=== PATIENT | male | born 1965 | race African-American/Black ===

== ENCOUNTER 2017-11-11 12:57 | Emergency (ER) | payer OTHER ==
[2017-11-11] MEDS ORDERED: ASPIRIN 81 MG CHEWABLE TABLETS PO ONE (13:11)
[2017-11-11] MEDS ORDERED: HEPARIN NA (PORCINE) 5,000 UNITS/ML 1ML VIAL IVPUSH PRN ×2 (13:12→20:48)
--- NOTE | 2017-11-11 13:13 | PDOC ---
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 Patient reports beginning to experience intermittent chest pain and SOB last week but stated he did not get evaluated as he thought it was something that would go away over time. He reports experiencing intense chest pain this afternoon as well as sob, stating increased chest pain with exertion prompting him to come into the ED for further evaluation. Patient currently has been experiencing increased sweating and dizziness while in the ED. Denies nausea, vomiting. Denies contact with sick individuals, out of state travelling. Denies any other symptoms. Allergies: Penicillin Social history: Current smoker (4 cigarettes per day). No alcohol. No illicit drugs. Surgical history: None PMD: Dr. Whitt Other provider: Dr. Neo Buenrostro - Medical Decision Making 11/11/17 17:23 Documentation prepared by Get French, acting as medical safety director for Arianna Simpson MD, /DO. <Get French - Last Filed: 11/11/17 17:23> - Resident Resident Name: Paul Albarran - ED Attending Attestation I have performed the following: I have examined & evaluated the patient, The case was reviewed & discussed with the resident, I agree w/resident's findings & plan, Exceptions are as noted - Physicial Exam PE: GENERAL: Awake, alert, and fully oriented. Appears anxious HEAD: No signs of trauma EYES: PERRLA, EOMI, sclera anicteric, conjunctiva clear ENT: Auricles normal inspection, hearing grossly normal, nares patent, oropharynx clear without exudates. Moist mucosa NECK: Normal ROM, supple, no lymphadenopathy, JVD, or masses LUNGS: Breath sounds equal, clear to auscultation bilaterally. No wheezes, and no crackles HEART: Regular rate and rhythm, normal S1 and S2, no murmurs, rubs or gallops ABDOMEN: Soft, +epigastric tenderness, normoactive bowel sounds. No guarding, no rebound. No masses EXTREMITIES: Normal range of motion, no edema. No clubbing or cyanosis. No cords, erythema, or tenderness NEUROLOGICAL: Cranial nerves II through XII grossly intact. Normal speech, normal gait SKIN: Warm, Diaphoretic, normal turgor, no rashes or lesions noted. - Medical Decision Making 11/11/17 14:19 Case discussed with IR, did not recommend intervention, as patient has evidence of pulmonary hypertension and old PEs on R side, concern that the risks of intervention outweigh the benefits, especially given normal RV size. Bedside echo done in ED, no signs of RV strain. Case d/w Dr. Buenrostro, no additional recommendations at present. <Arianna Simpson - Last Filed: 11/11/17 18:30>
[2017-11-11] MEDS ORDERED: SODIUM CHLORIDE 1,000 ML IV STA (13:14)
[2017-11-11 13:29] LABS: BASO % 0.7 % (0-2.0); EOS % 0.7 % (0-4.5); HEMATOCRIT 38.7 % (35.4-49); HEMOGLOBIN 12.5 GM/dL (11.7-16.9); LYMPH % 29.4 % (8-40); MCH 26.4 pg (25.7-33.7); MCHC 32.2 g/dl (32.0-35.9); MEAN CELL VOLUME 82.1 fl (80-96); MEAN PLT VOLUME 8.4 fl (7.5-11.1); NEUT % 62.2 % (42.8-82.8); PLATELET COUNT 233 K/MM3 (134-434); RBC 4.71 M/mm3 (4.00-5.60); RDW 15.8 % (11.9-15.9); WHITE BLOOD COUNT 13.6 K/mm3 (4.0-10.0)
[2017-11-11 13:43] LABS: INR 1.19 (0.82-1.09); PROTHROMBIN TIME (PATIENT) 13.4 SEC (9.98-11.88)
[2017-11-11] MEDS ORDERED: HEPARIN INFUSION - 25,000 UNITS/500 ML INFUS.BAG IVPB ONE (13:43)
[2017-11-11] MEDS ORDERED: HEPARIN NA (PORCINE) 5,000 UNITS/ML 1ML VIAL ONE ×2 (13:43→21:40)
[2017-11-11] MEDS ORDERED: HEPARIN NA (PORCINE) 5,000 UNITS/ML 1ML VIAL IVPUSH ONE (13:44)
[2017-11-11] MEDS ORDERED: HEPARIN INFUSION - 25,000 UNITS/500 ML INFUS.BAG IVPB SCH (13:45)
[2017-11-11 14:26] VITALS: TEMP 97.8; BMI 32.5
[2017-11-11 15:38] LABS: ALBUMIN 3.1 g/dl (3.4-5.0); ANION GAP 10 (8-16); BILIRUBIN,TOTAL 0.8 mg/dL (0.2-1.0); BLOOD UREA NITROGEN 14 mg/dL (7-18); CALCIUM 7.9 mg/dL (8.5-10.1); CHLORIDE 104 mmol/L (98-107); CO2 23 mmol/L (21-32); CREATININE 1.1 mg/dL (0.7-1.3); GLUCOSE,RANDOM 99 mg/dL (74-106); POTASSIUM 4.3 mmol/L (3.5-5.1); SGOT/AST 25 U/L (15-37); SGPT/ALT 40 U/L (12-78); SODIUM 137 mmol/L (136-145); TOT PROT 7.4 g/dl (6.4-8.2)
[2017-11-11 15:41] LABS: ALK PHOS 103 U/L (45-117)
--- NOTE | 2017-11-11 16:56 | HP ---
CHIEF COMPLAINT: PCP: HISTORY OF PRESENT ILLNESS: ER course was notable for: (1) (2) (3) Recent Travel: PAST MEDICAL HISTORY: PAST SURGICAL HISTORY: Social History: Smoking: Alcohol: Drugs: Family History: Allergies Penicillins Allergy (Unknown, Verified 11/11/17 14:13) HOME MEDICATIONS: Home Medications Medication Instructions Recorded Ascorbic Acid [Vitamin C -] 500 mg PO DAILY #30 tablet 03/16/14 Colesevelam HCl [Welchol] 1,875 mg PO BID #60 tablet 03/16/14 Cyclobenzaprine HCl [Flexeril] 5 mg PO TID PRN #90 tablet 03/16/14 Multivitamin [Multi-Day Vitamins] 1 each PO DAILY #30 tablet 03/16/14 Olmesartan/Hydrochlorothiazide 1 each PO DAILY #30 tablet 03/16/14 [Benicar Hct 20-12.5 mg Tablet] Warfarin Sodium [Coumadin] 5 mg PO DAILY #30 tablet 03/16/14 Methadone HCl 120 mg PO DAILY 04/11/16 Atorvastatin Ca [Lipitor] 20 mg PO HS #30 tablet 04/13/16 Metoprolol Succinate [Toprol XL -] 50 mg PO DAILY #30 tab.sr.24h 04/13/16 REVIEW OF SYSTEMS CONSTITUTIONAL: Absent: fever, chills, diaphoresis, generalized weakness, malaise, loss of appetite, weight change HEENT: Absent: rhinorrhea, nasal congestion, throat pain, throat swelling, difficulty swallowing, mouth swelling, ear pain, eye pain, visual changes CARDIOVASCULAR: Absent: chest pain, syncope, palpitations, irregular heart rate, lightheadedness , peripheral edema RESPIRATORY: Absent: cough, shortness of breath, dyspnea with exertion, orthopnea, wheezing, stridor, hemoptysis GASTROINTESTINAL: Absent: abdominal pain, abdominal distension, nausea, vomiting, diarrhea, constipation, melena, hematochezia GENITOURINARY: Absent: dysuria, frequency, urgency, hesitancy, hematuria, flank pain, genital pain MUSCULOSKELETAL: Absent: myalgia, arthralgia, joint swelling, back pain, neck pain SKIN: Absent: rash, itching, pallor HEMATOLOGIC/IMMUNOLOGIC: Absent: easy bleeding, easy bruising, lymphadenopathy, frequent infections ENDOCRINE: Absent: unexplained weight gain, unexplained weight loss, heat intolerance, cold intolerance NEUROLOGIC: Absent: headache, focal weakness or paresthesias, dizziness, unsteady gait, seizure, mental status changes, bladder or bowel incontinence PSYCHIATRIC: Absent: anxiety, depression, suicidal or homicidal ideation, hallucinations. PHYSICAL EXAMINATION Vital Signs - 24 hr 11/11/17 11/11/17 11/11/17 13:10 13:25 14:00 Temperature 97.8 F Pulse Rate 100 H Pulse Rate [ 101 H 98 H Apical] Respiratory 30 H 24 26 H Rate Blood Pressure 132/80 Blood Pressure 107/72 98/66 [Right Arm] O2 Sat by Pulse 90 L 98 98 Oximetry (%) 11/11/17 11/11/17 15:34 16:44 Temperature Pulse Rate Pulse Rate [ 90 90 Apical] Respiratory 24 20 Rate Blood Pressure Blood Pressure 106/82 122/68 [Right Arm] O2 Sat by Pulse 98 98 Oximetry (%) GENERAL: Awake, alert, and fully oriented, in no acute distress. HEAD: Normal with no signs of trauma. EYES: Pupils equal, round and reactive to light, extraocular movements intact, sclera anicteric, conjunctiva clear. No lid lag. EARS, NOSE, THROAT: Ears normal, nares patent, oropharynx clear without exudates. Moist mucous membranes. NECK: Normal range of motion, supple without lymphadenopathy, JVD, or masses. LUNGS: Breath sounds equal, clear to auscultation bilaterally. No wheezes, and no crackles. No accessory muscle use. HEART: Regular rate and rhythm, normal S1 and S2 without murmur, rub or gallop. ABDOMEN: Soft, nontender, not distended, normoactive bowel sounds, no guarding, no rebound, no masses. No hepatomegaly or splenomegaly. MUSCULOSKELETAL: Normal range of motion at all joints. No bony deformities or tenderness. No CVA tenderness. UPPER EXTREMITIES: 2+ pulses, warm, well-perfused. No cyanosis. No clubbing. No peripheral edema. LOWER EXTREMITIES: 2+ pulses, warm, well-perfused. No calf tenderness. No peripheral edema. NEUROLOGICAL: Cranial nerves II-XII intact. Normal speech. Normal gait. PSYCHIATRIC: Cooperative. Good eye contact. Appropriate mood and affect. SKIN: Warm, dry, normal turgor, no rashes or lesions noted, normal capillary refill. Laboratory Results - last 24 hr 11/11/17 11/11/17 11/11/17 13:13 13:13 13:13 WBC 13.6 H D RBC 4.71 Hgb 12.5 Hct 38.7 MCV 82.1 MCH 26.4 MCHC 32.2 RDW 15.8 Plt Count 233 MPV 8.4 Neutrophils % 62.2 D Lymphocytes % 29.4 D Monocytes % 7.0 Eosinophils % 0.7 Basophils % 0.7 PT with INR 13.40 H INR 1.19 H Sodium Cancelled Potassium Cancelled Chloride Cancelled Carbon Dioxide Cancelled Anion Gap Cancelled BUN Cancelled Creatinine Cancelled Creat Clearance w eGFR Cancelled Random Glucose Cancelled Calcium Cancelled Magnesium Cancelled Total Bilirubin Cancelled AST Cancelled ALT Cancelled Alkaline Phosphatase Cancelled Creatine Kinase Cancelled Troponin I Cancelled Total Protein Cancelled Albumin Cancelled 11/11/17 14:20 WBC RBC Hgb Hct MCV MCH MCHC RDW Plt Count MPV Neutrophils % Lymphocytes % Monocytes % Eosinophils % Basophils % PT with INR INR Sodium 137 Potassium 4.3 Chloride 104 Carbon Dioxide 23 D Anion Gap 10 BUN 14 D Creatinine 1.1 D Creat Clearance w eGFR > 60 Random Glucose 99 Calcium 7.9 L Magnesium 2.0 Total Bilirubin 0.8 D AST 25 D ALT 40 D Alkaline Phosphatase 103 Creatine Kinase 112 Troponin I 0.07 H D Total Protein 7.4 Albumin 3.1 L ASSESSMENT/PLAN:
--- NOTE | 2017-11-11 16:57 | PDOC ---
History of Present Illness - General History Source: Patient Exam Limitations: No Limitations - History of Present Illness Initial Comments: 11/11/17 17:23 The patient is a 52M with a PMH of multiple PE's, DVT, hypertension, hyperlipidemia who presents to the ED with complaints of shortness of breath. The patient states that he was not feeling well for the last week and it has acutely worsened today which prompted him to come to the ER. He states that he feels CP when he moves and when he takes a deep breath. He does not feel any pain as he is standing still. <Paul Albarran - Last Filed: 11/11/17 19:23> <Sydnie Campos - Last Filed: 11/11/17 21:53> - General Chief Complaint: Shortness of Breath Stated Complaint: SOB Time Seen by Provider: 11/11/17 13:06 Past History - Past Medical History Anemia: No Asthma: No Cancer: No Cardiac Disorders: Yes (enlarged heart) CVA: No COPD: No CHF: No DVT: Yes Dementia: No Diabetes: No GI Disorders: No Disorders: No HTN: Yes Hypercholesterolemia: Yes Kidney Stones: No Liver Disease: No Seizures: No Thyroid Disease: No Lung CA: (PE, off coumadin) - Surgical History Abdominal Surgery: Yes (hernia) Appendectomy: No Cardiac Surgery: No Cholecystectomy: No Lung Surgery: No Neurologic Surgery: No Orthopedic Surgery: Yes (right knee) - Reproductive History Testicular Surgery: No - Immunization History Immunization Up to Date: No - Suicide/Smoking/Psychosocial Hx Smoking History: Current every day smoker Have you smoked in the past 12 months: No Number of Cigarettes Smoked Daily: 4 Information on smoking cessation initiated: No 'Breaking Loose' booklet given: 02/20/14 Hx Alcohol Use: No Drug/Substance Use Hx: No Substance Use Type: Heroin, Tranquilizers Hx Substance Use Treatment: Yes (attends [facility] and [facility]) <Paul Albarran - Last Filed: 11/11/17 19:23> <Sydnie Campos - Last Filed: 11/11/17 21:53> - Past Medical History Allergies/Adverse Reactions: Allergies Allergy/AdvReac Type Severity Reaction Status Date / Time Penicillins Allergy Unknown Verified 11/11/17 14:13 Home Medications: Ambulatory Orders Ascorbic Acid [Vitamin C -] 500 mg PO DAILY #30 tablet 05/23/14 Colesevelam HCl [Welchol] 1,875 mg PO BID #60 tablet 03/16/14 Cyclobenzaprine HCl [Flexeril] 5 mg PO TID PRN #90 tablet 03/16/14 Multivitamin [Multi-Day Vitamins] 1 each PO DAILY #30 tablet 03/16/14 Olmesartan/Hydrochlorothiazide [Benicar Hct 20-12.5 mg Tablet] 1 each PO DAILY # 30 tablet 03/16/14 Warfarin Sodium [Coumadin] 5 mg PO DAILY #30 tablet 03/16/14 Methadone HCl 120 mg PO DAILY 04/11/16 Atorvastatin Ca [Lipitor] 20 mg PO HS #30 tablet 04/13/16 Metoprolol Succinate [Toprol XL -] 50 mg PO DAILY #30 tab.sr.24h 04/13/16 *Physical Exam - Vital Signs Last Vital Signs Temp Pulse Resp BP Pulse Ox 97.8 F 90 20 122/68 98 11/11/17 13:10 11/11/17 16:44 11/11/17 16:44 11/11/17 16:44 11/11/17 16:44 <Paul Albarran - Last Filed: 11/11/17 19:23> - Vital Signs Last Vital Signs Temp Pulse Resp BP Pulse Ox 97.8 F 94 H 30 H 93/62 100 11/11/17 13:10 11/11/17 20:25 11/11/17 20:25 11/11/17 20:25 11/11/17 20:25 <Sydnie Campos - Last Filed: 11/11/17 21:53> ED Treatment Course - LABORATORY CBC & Chemistry Diagram: 11/11/17 13:13 11/11/17 14:20 - ADDITIONAL ORDERS Additional order review: Laboratory Results 11/11/17 11/11/17 11/11/17 14:20 13:13 13:13 PT with INR 13.40 H INR 1.19 H Sodium 137 Cancelled Potassium 4.3 Cancelled Chloride 104 Cancelled Carbon Dioxide 23 D Cancelled Anion Gap 10 Cancelled BUN 14 D Cancelled Creatinine 1.1 D Cancelled Creat Clearance w eGFR > 60 Cancelled Random Glucose 99 Cancelled Calcium 7.9 L Cancelled Magnesium 2.0 Cancelled Total Bilirubin 0.8 D Cancelled AST 25 D Cancelled ALT 40 D Cancelled Alkaline Phosphatase 103 Cancelled Creatine Kinase 112 Cancelled Troponin I 0.07 H D Cancelled Total Protein 7.4 Cancelled Albumin 3.1 L Cancelled 11/11/17 13:13 RBC 4.71 MCV 82.1 MCHC 32.2 RDW 15.8 MPV 8.4 Neutrophils % 62.2 D Lymphocytes % 29.4 D Monocytes % 7.0 Eosinophils % 0.7 Basophils % 0.7 - Medications Given in the ED: ED Medications Discontinued Medications Generic Name Dose Route Start Last Admin Trade Name Chichi PRN Reason Stop Dose Admin Aspirin 162 mg 11/11/17 13:11 11/11/17 14:12 Asa - PO 11/11/17 13:12 Not Given ONCE ONE Heparin Sodium (Porcine) 5,000 unit 11/11/17 13:44 11/11/17 13:45 Heparin - IVPUSH 11/11/17 13:45 5,000 unit ONCE ONE Administration Sodium Chloride 1,000 mls @ 1,000 mls/hr 11/11/17 13:14 11/11/17 13:40 Normal Saline - IV 11/11/17 14:13 1,000 mls/hr ASDIR STA Administration <Paul Albarran - Last Filed: 11/11/17 19:23> - LABORATORY CBC & Chemistry Diagram: 11/11/17 13:13 11/11/17 14:20 - ADDITIONAL ORDERS Additional order review: Laboratory Results 11/11/17 11/11/17 11/11/17 14:20 13:13 13:13 PT with INR 13.40 H INR 1.19 H Sodium 137 Cancelled Potassium 4.3 Cancelled Chloride 104 Cancelled Carbon Dioxide 23 D Cancelled Anion Gap 10 Cancelled BUN 14 D Cancelled Creatinine 1.1 D Cancelled Creat Clearance w eGFR > 60 Cancelled Random Glucose 99 Cancelled Calcium 7.9 L Cancelled Magnesium 2.0 Cancelled Total Bilirubin 0.8 D Cancelled AST 25 D Cancelled ALT 40 D Cancelled Alkaline Phosphatase 103 Cancelled Creatine Kinase 112 Cancelled Troponin I 0.07 H D Cancelled Total Protein 7.4 Cancelled Albumin 3.1 L Cancelled 11/11/17 13:13 RBC 4.71 MCV 82.1 MCHC 32.2 RDW 15.8 MPV 8.4 Neutrophils % 62.2 D Lymphocytes % 29.4 D Monocytes % 7.0 Eosinophils % 0.7 Basophils % 0.7 - Medications Given in the ED: ED Medications Discontinued Medications Generic Name Dose Route Start Last Admin Trade Name Chichi PRN Reason Stop Dose Admin Aspirin 162 mg 11/11/17 13:11 11/11/17 14:12 Asa - PO 11/11/17 13:12 Not Given ONCE ONE Heparin Sodium (Porcine) 5,000 unit 11/11/17 13:44 11/11/17 13:45 Heparin - IVPUSH 11/11/17 13:45 5,000 unit ONCE ONE Administration Sodium Chloride 1,000 mls @ 1,000 mls/hr 11/11/17 13:14 11/11/17 13:40 Normal Saline - IV 11/11/17 14:13 1,000 mls/hr ASDIR STA Administration Ondansetron HCl 4 mg 11/11/17 20:29 11/11/17 21:49 Zofran Injection IVPUSH 11/11/17 20:30 4 mg NOW ONE Administration Sodium Chloride 2,000 ml 11/11/17 19:59 11/11/17 20:01 Normal Saline - IV 11/11/17 20:00 2,000 ml ONCE ONE Administration <Sydnie Campos - Last Filed: 11/11/17 21:53> Medical Decision Making - Medical Decision Making 11/11/17 18:11 The patient is a 52M with a PMH of multiple PE's who presents with shortness of breath and pleuritic CP. CTA shows b/l PE. Pt is borderline hypotensive with no RV strain seen on CTA and bedside U/S making it a submassive PE. Patient is heparinized. Was initially admitted for ICU but hospitalist does not want to admit the patient. Dr. Wang does not want to admit the patient (remove the decision to admit) because she wants ED staff to talk to Joseph TAYLOR for direct thrombectomy. Paging Joseph TAYLOR. 11/11/17 19:16 Joseph TAYLOR paged again. 11/11/17 19:23 Patient is signed out to [facility]. <Paul Albarran - Last Filed: 11/11/17 19:23> *DC/Admit/Observation/Transfer - Discharge Dispostion Admit: Yes <Paul Albarran - Last Filed: 11/11/17 19:23> - Discharge Dispostion Admit: No - Transfer to Acute Care Facility Receiving Facility: [facility]. Accepting Physician:: Osmani <Sydnie Campos - Last Filed: 11/11/17 21:53> Diagnosis at time of Disposition: Hypotension Qualifiers: Hypotension type: unspecified hypotension type Qualified Code(s): I95.9 - Hypotension, unspecified Pulmonary embolism Qualifiers: Pulmonary embolism type: other Chronicity: acute Acute cor pulmonale presence: with acute cor pulmonale Qualified Code(s): I26.09 - Other pulmonary embolism with acute cor pulmonale - Discharge Dispostion Disposition: TRANSFER ACUTE CARE/OTHER HOSP Condition at time of disposition: Guarded
--- NOTE | 2017-11-11 19:50 | PDOC ---
*Physical Exam - Vital Signs Last Vital Signs Temp Pulse Resp BP Pulse Ox 97.8 F 94 H 25 H 90/70 99 11/11/17 13:10 11/11/17 17:44 11/11/17 17:44 11/11/17 17:44 11/11/17 17:44 11/11/17 19:43 Patient is signed out to me at the beginning of my shift. 52 YOM with h/o prior DVT/PE, HTN, HLD, p/w SOB and found to have bilateral submassive PE. IR recommended no intervention at the time of consult. Initially hospitalist admits with ICU placement confirmed with Dr. Buenrostro. Subsequently there are hospitalist concerns about the patient's stability being admitted and going to ICU without thrombolysis/IR intervention. [facility] transfer center called twice in the 6pm hour to discuss possibility of transfer. Lowest BP while patient has been here in the ED has been 75/58 and this was taken at 7:15 pm. Will consult again with IR to decide if intervention is now warranted. - Physical Exam General Appearance: Yes: Moderate Distress, Other (face is diaphoretic, answering questions in three-word sentences, tachypneic, uncomfortable) HEENT: positive: Other (face diaphoretic) ED Treatment Course - LABORATORY CBC & Chemistry Diagram: 11/11/17 13:13 11/11/17 14:20 - ADDITIONAL ORDERS Additional order review: Laboratory Results 11/11/17 11/11/17 11/11/17 14:20 13:13 13:13 PT with INR 13.40 H INR 1.19 H Sodium 137 Cancelled Potassium 4.3 Cancelled Chloride 104 Cancelled Carbon Dioxide 23 D Cancelled Anion Gap 10 Cancelled BUN 14 D Cancelled Creatinine 1.1 D Cancelled Creat Clearance w eGFR > 60 Cancelled Random Glucose 99 Cancelled Calcium 7.9 L Cancelled Magnesium 2.0 Cancelled Total Bilirubin 0.8 D Cancelled AST 25 D Cancelled ALT 40 D Cancelled Alkaline Phosphatase 103 Cancelled Creatine Kinase 112 Cancelled Troponin I 0.07 H D Cancelled Total Protein 7.4 Cancelled Albumin 3.1 L Cancelled 11/11/17 13:13 RBC 4.71 MCV 82.1 MCHC 32.2 RDW 15.8 MPV 8.4 Neutrophils % 62.2 D Lymphocytes % 29.4 D Monocytes % 7.0 Eosinophils % 0.7 Basophils % 0.7 - Medications Given in the ED: ED Medications Discontinued Medications Generic Name Dose Route Start Last Admin Trade Name Chichi PRN Reason Stop Dose Admin Aspirin 162 mg 11/11/17 13:11 11/11/17 14:12 Asa - PO 11/11/17 13:12 Not Given ONCE ONE Heparin Sodium (Porcine) 5,000 unit 11/11/17 13:44 11/11/17 13:45 Heparin - IVPUSH 11/11/17 13:45 5,000 unit ONCE ONE Administration Sodium Chloride 1,000 mls @ 1,000 mls/hr 11/11/17 13:14 11/11/17 13:40 Normal Saline - IV 11/11/17 14:13 1,000 mls/hr ASDIR STA Administration *DC/Admit/Observation/Transfer Diagnosis at time of Disposition: Pulmonary embolism Qualifiers: Pulmonary embolism type: other Chronicity: acute Acute cor pulmonale presence: with acute cor pulmonale Qualified Code(s): I26.09 - Other pulmonary embolism with acute cor pulmonale - Discharge Dispostion Condition at time of disposition: Guarded - Referrals - Patient Instructions - Post Discharge Activity
[2017-11-11] MEDS ORDERED: SODIUM CHLORIDE 0.9% 1000 ML INFUS.BAG IV ONE (19:59)
[2017-11-11] MEDS ORDERED: ONDANSETRON 4 MG/2 ML VIAL IVPUSH ONE (20:29)
[2017-11-11] MEDS ORDERED: ONDANSETRON 4 MG/2 ML VIAL ONE (21:41)
[2017-11-11 22:54] VITALS: BP 113/67; PULSE 89
--- NOTE | 2017-11-12 13:30 | EKG ---
Test Reason : Blood Pressure : / mmHG Vent. Rate : 100 BPM Atrial Rate : 100 BPM P-R Int : 192 ms QRS Dur : 086 ms QT Int : 374 ms P-R-T Axes : 069 -07 037 degrees QTc Int : 482 ms NORMAL SINUS RHYTHM POSSIBLE LEFT ATRIAL ENLARGEMENT LOW VOLTAGE QRS INFERIOR INFARCT , AGE UNDETERMINED CANNOT RULE OUT ANTERIOR INFARCT , AGE UNDETERMINED ABNORMAL ECG Confirmed by MD NILDA, JUANITA ([id number]) on 11/12/2017 1:30:30 PM Referred By: Confirmed By:JUANITA MUNGUIA MD
== END 2017-11-11 22:08 | disposition short-term general hospital (02) ==
LOC: JER 12:57 → UNDOADMIN 16:57 → JERBED 16:57 → JER 22:08
PROC: 3E033GC Introduction of Other Therapeutic Substance into Peripheral Vein, Percutaneous Approach (ICD-10-PCS; principal; 2017-11-11)
PROC: 3E0337Z Introduction of Electrolytic and Water Balance Substance into Peripheral Vein, Percutaneous Approach (ICD-10-PCS; 2017-11-11)
DX: I26.09 Other pulmonary embolism with acute cor pulmonale (principal); I95.9 Hypotension, unspecified; Z86.711 Personal history of pulmonary embolism; Z86.718 Personal history of other venous thrombosis and embolism; F11.20 Opioid dependence, uncomplicated; F17.210 Nicotine dependence, cigarettes, uncomplicated
CPT/HCPCS: 36415; 71275-TC; 80053; 82550; 83735; 84484; 85025; 85610; 93005; 93010; 99285-25; J1644